=== PATIENT | male | born 1965 | race Caucasian/White ===

== ENCOUNTER → 2017-09-22 | Outpatient (CLI) | payer SELFPAY | END | disposition home or self-care (01) | LOC: LAB.O 10:02 | DX: Z13.9 Encounter for screening, unspecified (principal) ==

== ENCOUNTER 2017-10-17 10:12 | Emergency (ER) | payer OTHER ==
--- NOTE | 2017-10-17 10:22 | ED.PDOC ---
History of Present Illness - General Chief Complaint: Neuro Symptoms/Deficits Stated Complaint: Unable to follow multiple steps, emotional, "foggy Time Seen by Provider: 10/17/17 10:15 Source: patient Exam Limitations: no limitations - History of Present Illness Initial Comments: Mirza Carter 52 y/o male who had been apparently well stated that for the last 3 days had been very emotional suddenly cries w/o reason ,sometime having hard time thinking-gets foggy and has numbness tip of fingers coming out when weather is cold.He stated no chronic medical problem.No weakness,but sometimes feels tired,so dysarthria .Went eith to the [employer] in [place] Tuesday noticed that he sometimes cries spontaneously w/o reason.Patient stayed that he might been stressed at work recently for the past 2 months since he had been busy and also on the phone most of the time even if he is on vacation.Denies harm to self or others.Denies problem with sleep but at night snores a lot and noticed that he has short episode of apnea and goes to sleep easily. Timing/Duration: waxing and waning, other - 3 days Severity: moderate Episode Description: see hpi Improving Factors: nothing Worsening Factors: nothing Associated Symptoms: other - see hpi Allergies/Adverse Reactions: Allergies NO KNOWN ALLERGY Allergy (Verified 10/17/17 10:22) Home Medications: Ambulatory Orders Atorvastatin Calcium [Lipitor] 10 mg PO DAILY 10/17/17 Testosterone Enanthate 200 mg IM BIW 10/17/17 Review of Systems - Review of Systems Constitutional: States: no symptoms reported EENTM: States: no symptoms reported Respiratory: States: no symptoms reported Cardiology: States: no symptoms reported Gastrointestinal/Abdominal: States: no symptoms reported Genitourinary: States: no symptoms reported Musculoskeletal: States: no symptoms reported Skin: States: no symptoms reported Neurological: States: see HPI, emotional problems All other Systems: Reviewed and Negative Past Medical History (General) - Patient Medical History Hx Other PMH: Yes - dyslipedemia Surgical History: other - groin hernia repair - Social History Hx Tobacco Use: No Hx Alcohol Use: No Hx Physical Abuse: No Hx Emotional Abuse: No Hx Suspected Abuse: No Family Medical History - Family History Father Family History: No Known Physical Exam - Physical Exam General Appearance: Alert, Comfortable, No apparent distress, Other - occasional crying in the room Eye Exam: bilateral normal ENT Exam: normal ENT inspection, hearing grossly normal, pharynx normal Neck: non-tender, full range of motion, supple, trachea midline Respiratory: chest non-tender, lungs clear, normal breath sounds Cardiovascular/Chest: normal peripheral pulses, regular rate, rhythm, no murmur Peripheral Pulses: radial,right: 2+, radial,left: 2+ Gastrointestinal/Abdominal: normal bowel sounds, non tender, soft, no organomegaly Back Exam: no CVA tenderness, no vertebral tenderness Extremities Exam: non-tender, normal range of motion Mental Status: alert, oriented x 3 attending physician Exam: normal hearing, normal speech, PERRL Coordination/Gait: normal gait, negative Romberg's sign Motor/Sensory: no motor deficit, no sensory deficit, no pronator drift Skin Exam: normal color, warm/dry Progress - Progress Progress: 10/17/17 12:33 Last Vital Signs Temp 97.9 F 10/17/17 10:15 Pulse 56 L 10/17/17 12:20 Resp 20 10/17/17 12:20 BP 115/77 10/17/17 12:20 Pulse Ox 96 10/17/17 12:20 Last Vital Signs Temp 97.9 F 10/17/17 10:15 Pulse 56 L 10/17/17 12:20 Resp 20 10/17/17 12:20 BP 115/77 10/17/17 12:20 Pulse Ox 96 10/17/17 12:20 Laboratory Tests 10/17/17 10/17/17 10/17/17 10:32 11:15 11:15 WBC 12.1 H RBC 4.89 Hgb 15.8 Hct 46.0 MCV 94.1 H MCH 32.3 H MCHC 34.3 RDW 12.5 Plt Count 262 MPV 8.8 Absolute Neuts (auto) 9.00 H Absolute Lymphs (auto) 2.10 Absolute Monos (auto) 0.90 H Absolute Eos (auto) 0.10 Absolute Basos (auto) 0.10 Neutrophils % 74.2 Lymphocytes % 17.1 L Monocytes % 7.3 Eosinophils % 0.8 L Basophils % 0.6 PT 11.6 INR 1.030 PTT (SP) 31.0 Sodium 141 Potassium 3.7 Chloride 106 Carbon Dioxide 27 Anion Gap 11.7 L BUN 16 Creatinine 0.96 BUN/Creatinine Ratio 16.7 Random Glucose 120 H Serum Osmolality 283.6 Calcium 9.2 Magnesium 2.1 Total Bilirubin 0.5 Direct Bilirubin < 0.1 Indirect Bilirubin 0.4 AST 17 ALT 27 Alkaline Phosphatase 49 Creatine Kinase 47 CK-MB (CK-2) 0.8 CK-MB (CK-2) % Not Reportable Troponin I < 0.02 Serum Total Protein 7.7 Albumin 3.9 Urine Color Yellow Urine Appearance Clear Urine pH 5.5 Ur Specific Lincoln >= 1.030 Urine Protein Negative Urine Glucose (UA) Negative Urine Ketones Negative Urine Blood Negative Urine Nitrite Negative Urine Bilirubin Negative Urine Urobilinogen 0.2 Ur Leukocyte Esterase Negative Urine RBC 0 Urine WBC 0 Ur Epithelial Cells 0-1 Urine Bacteria 0 Urine Opiates Screen Negative Urine Barbiturates Negative Ur Phencyclidine Scrn Negative U Amphetamin/Meth Scrn Negative U Benzodiazepines Scrn Negative U Cocaine Metab Screen Negative U Cannabinoids Screen Negative - Results/Orders Results/Orders: 10/17/17 10:28 IV Care:Saline Lock per Protoc QSHIFT 10/17/17 10:30 EKG STAT Laboratory Results - last 24 hr 10/17/17 10/17/17 10/17/17 10:32 11:15 11:15 WBC 12.1 H RBC 4.89 Hgb 15.8 Hct 46.0 MCV 94.1 H MCH 32.3 H MCHC 34.3 RDW 12.5 Plt Count 262 MPV 8.8 Absolute Neuts (auto) 9.00 H Absolute Lymphs (auto) 2.10 Absolute Monos (auto) 0.90 H Absolute Eos (auto) 0.10 Absolute Basos (auto) 0.10 Neutrophils % 74.2 Lymphocytes % 17.1 L Monocytes % 7.3 Eosinophils % 0.8 L Basophils % 0.6 PT 11.6 INR 1.030 PTT (SP) 31.0 Sodium 141 Potassium 3.7 Chloride 106 Carbon Dioxide 27 Anion Gap 11.7 L BUN 16 Creatinine 0.96 BUN/Creatinine Ratio 16.7 Random Glucose 120 H Serum Osmolality 283.6 Calcium 9.2 Magnesium 2.1 Total Bilirubin 0.5 Direct Bilirubin < 0.1 Indirect Bilirubin 0.4 AST 17 ALT 27 Alkaline Phosphatase 49 Creatine Kinase 47 CK-MB (CK-2) 0.8 CK-MB (CK-2) % Not Reportable Troponin I < 0.02 Serum Total Protein 7.7 Albumin 3.9 Urine Color Yellow Urine Appearance Clear Urine pH 5.5 Ur Specific Lincoln >= 1.030 Urine Protein Negative Urine Glucose (UA) Negative Urine Ketones Negative Urine Blood Negative Urine Nitrite Negative Urine Bilirubin Negative Urine Urobilinogen 0.2 Ur Leukocyte Esterase Negative Urine RBC 0 Urine WBC 0 Ur Epithelial Cells 0-1 Urine Bacteria 0 Urine Opiates Screen Negative Urine Barbiturates Negative Ur Phencyclidine Scrn Negative U Amphetamin/Meth Scrn Negative U Benzodiazepines Scrn Negative U Cocaine Metab Screen Negative U Cannabinoids Screen Negative - EKG/XRAY/CT EKG: Sinus Comments: Heart rate 63 XRAY: chest - no acute abnormality CT Ordered: Yes - no acute abnormality Stroke Information - Contraindications Antithrombotic Contraindication: Treatment not indicated t-PA Contraindication: Drug Tx Not Indicated Departure - Departure Clinical Impression: Emotional state symptom, Numbness of fingers of both hands Time of Disposition: 12:44 Disposition: Discharge to Home or Self Care Condition: Good Departure Forms: ED Discharge - Pt. Copy, Patient Portal Self Enrollment Referrals: Sedrick Saldivar MD [Primary Care Provider] - 1-2 Weeks Home Medications: Ambulatory Orders Atorvastatin Calcium [Lipitor] 10 mg PO DAILY 10/17/17 Testosterone Enanthate 200 mg IM BIW 10/17/17 Additional Instructions: Follow up with Primary Md 10/18 ;Return to emergency room as needed
--- NOTE | 2017-10-17 11:00 | RAD ---
EXAM DESCRIPTION: Chest, 2 Views CLINICAL HISTORY: ams. Patient complains of unusual emotional lability. COMPARISON: CT scan of the head on the same visit. TECHNIQUE: PA and lateral images. FINDINGS: The lungs are normally expanded bilaterally, with no infiltrates. No pleural effusion, no pneumothorax. Heart size within normal range; pulmonary vascularity unremarkable. Mediastinum not widened. Aorta unremarkable. No acute bony thorax abnormalities. IMPRESSION: No radiographic evidence of acute cardiopulmonary disease. Electronically signed by: Jose Sanders MD 10/17/2017 10:59 AM [facility]
--- NOTE | 2017-10-17 11:04 | CT ---
EXAM DESCRIPTION: Head: Computed Tomography. CLINICAL HISTORY: ams. Patient complains of unusual emotional lability. COMPARISON: Radiographs of the chest on this visit. TECHNIQUE: Non-helical axial scans through the skull and brain, at 2.5 mm intervals, non-contrast. Coronal and sagittal 2.0 mm reconstructions. Total Exam DLP: 752.48 mGy-cm. This exam was performed according to our departmental dose-optimization program which includes automated exposure control, adjustment of the mA and/or kV according to patient size and/or use of iterative reconstruction technique; to reduce radiation dose to as low as reasonably achievable (ALARA). Motion artifact on the study. FINDINGS: No hemorrhage, no mass-effect, and no midline shift. Normal urbina-white matter differentiation. No abnormal radiodense material in the brain parenchyma. Vascular calcifications not present; physiologic calcifications in the pineal gland and choroid plexus. No effacement or displacement of the ventricles, CSF spaces, or subdural spaces. No extra axial fluid collection or hemorrhage. Minimally prominent cortical sulci frontoparietal and occipital lobes for patient's age. No gross abnormalities of the bony calvarium. Chronic paranasal mucosal thickening. No air-fluid levels in the paranasal mastoid air cells. IMPRESSION: 1. No hemorrhage, no mass effect, no midline shift. . No effacement of cortical sulci, ventricles , or CSF spaces. 2. CT scans are insensitive for detecting small CVAs in the first 24 hours after onset. Evaluation of the brain stem is also limited. If symptoms persist, consider MRI scan of the brain with diffusion imaging. Electronically signed by: Jose Sanders MD 10/17/2017 11:02 AM [facility]
--- NOTE | 2017-10-17 11:50 | US ---
EXAM DESCRIPTION: Carotid Duplex: ULTRASOUND. CLINICAL HISTORY: ams. Patient states unexplained emotional lability. COMPARISON: CT scan of the head and chest x-ray on the same visit. TECHNIQUE: Transcutaneous scanning utilizing 2-dimensional and Doppler modes to evaluate the bilateral carotid systems and vertebral arteries. Percentage of diameter of stenosis or no stenosis recorded will be based upon NASCET criteria. FINDINGS: Peak systolic/end diastolic (CM-Sec) CCA Right 130/23 Left 101/25. ICA Right proximal 61/19, mid 85/29 85/29. Left proximal 50/19, mid 69/27. Vertebral Right 59/18 Left 49/18. ECA (PS Only) Right 116 left 110. ICA/CCA peak systolic ratio: Right 0.7 Left 0.7 ICA/CCA end diastolic ratio: Right 1.2 Left 1.1 Vertebral arteries: antegrade flow. Comments: No significant findings by Doppler or 2-D examination. IMPRESSION: 1. Doppler evaluation of the bilateral carotid systems and vertebral arteries shows no hemodynamically significant stenoses. 2. No significant amount of plaque seen in the carotid arteries bilaterally. Bilateral vertebral arteries showed antegrade-cephalad flow. Electronically signed by: Jose Sanders MD 10/17/2017 11:49 AM [facility] [employer] [facility] [employer]
[2017-10-17 13:25] VITALS: BP 114/64; TEMP 97; O2SAT 97
== END 2017-10-17 13:23 | disposition home or self-care (01) ==
LOC: ER 10:12
DX: R45.89 Other symptoms and signs involving emotional state (principal); R20.0 Anesthesia of skin; E78.5 Hyperlipidemia, unspecified

== ENCOUNTER → 2017-10-18 | Outpatient (CLI) | payer OTHER, SELFPAY ==
--- NOTE | 2017-10-18 15:42 | MRI ---
EXAM DESCRIPTION: Brain w/oContrast: MRI. CLINICAL HISTORY: ACUTE CONFUSIONAL STATE COMPARISON: CT scan of the head and duplex ultrasound evaluation of the carotid and vertebral arteries on 10/17/2017. TECHNIQUE: Multiplanar, high-field MRI unit, multiple diffusion sequences, multiple conventional sequences without contrast. FINDINGS: Normal FLAIR and T2-weighted signal in the periventricular white matter and urbina-white matter junctions of the cerebral hemispheres. . Normal signal in the bilateral basal ganglia. No hemorrhage, no cerebral edema, no mass-effect. Normal signal in the brainstem and cerebellar hemispheres. No hemorrhage, no cerebral edema, no mass-effect. Concordance of the diffusion and non-diffusion sequences with no diffusion restriction. Cortical sulci, and the subdural spaces are mildly prominent for patient's age. Also the CSF spaces around the cerebellum. No hydrocephalus, ventricles are unremarkable. No effacement or displacement. No midline shift. No extra-axial hemorrhage. Normal flow signal void in the major vessels of the [place], and the venous sinuses. IACs are symmetric bilaterally. No fluid signal in the bilateral mastoid air cells. No mass effect in the bilateral cerebellopontine angles. Pituitary gland occupies most of the sella. Base of the cerebellar tonsils is above the foramen magnum. Mucoperiosteal thickening in the left maxillary antra with air-fluid level. Mucoperiosteal thickening representing chronic sinusitis in the anterior ethmoid air cells. Lacie bullosa in the right middle turbinate. Otherwise unremarkable paranasal sinuses. The bony calvarium is intact. IMPRESSION: 1. No intra-axial or extra-axial hemorrhage. No mass effect, no cerebral edema, and no midline shift. 2. Normal noncontrast MRI diffusion scan of the brain with no evidence of significant ischemia or infarction. 3. Paranasal sinus abnormalities including possible acute left maxillary antral sinusitis. Electronically signed by: Jose Sanders MD 10/18/2017 3:42 PM [facility]
== END ==
LOC: MRI 12:58
PROVIDERS: ATTEND Family Medicine
DX: R41.82 Altered mental status, unspecified (principal); R45.86 Emotional lability; R06.83 Snoring; G47.30 Sleep apnea, unspecified

== ENCOUNTER → 2017-11-01 | Outpatient (CLI) | payer SELFPAY | LOC: SL 20:34 | PROVIDERS: ATTEND Family Medicine | DX: G47.33 Obstructive sleep apnea (adult) (pediatric) (principal) ==